=== PATIENT | male | born 1940 | race Caucasian/White ===

== ENCOUNTER 2018-10-14 05:30 | Emergency (ER) | payer OTHER ==
[2018-10-14 06:48] LABS: ADD MAN DIFF? NO
[2018-10-14 06:49] LABS: WHITE BLOOD COUNT 9.3 10^3/ul (4.8-10.8)
[2018-10-14 06:49] LABS: BASOPHIL # 0.1 10^3/ul (0.0-0.1); BASOPHILS % 0.5 % (0.0-2.0); EOSINOPHILS # 0.4 10^3/ul (0.0-0.5); EOSINOPHILS % 3.7 % (0.0-7.0); HEMATOCRIT 45.2 % (42.0-52.0); HEMOGLOBIN 14.3 g/dl (14.0-18.0); LYMPHOCYTES # 1.2 10^3/ul (0.8-2.9); LYMPHOCYTES % 12.4 % (15.0-51.0); MEAN CORPUSCULAR HEMOGLOBIN 30.1 pg (29.0-33.0); MEAN CORPUSCULAR HGB CONC 31.6 g/dl (32.0-37.0); MEAN CORPUSCULAR VOLUME 95.2 fl (82.0-101.0); MONOCYTES % 10.2 % (0.0-11.0); NEUTROPHIL # 6.8 10^3/ul (1.6-7.5); PLATELET COUNT 232 10^3/UL (140-415); RED BLOOD COUNT 4.75 10^6/ul (4.70-6.10); RED CELL DISTRIBUTION WIDTH 13.5 % (11.5-14.5)
[2018-10-14 07:24] LABS: TROPONIN-I 0.068 ng/ml (0.000-0.120)
[2018-10-14 07:24] LABS: B-TYPE NATRIURETIC PEPTIDE 859 PG/ML (0-450)
[2018-10-14] MEDS: FUROSEMIDE 20 MG TAB PO (07:45)
== END 2018-10-14 07:52 | disposition home or self-care (01) ==
LOC: FTE 05:30
DX: I11.0 Hypertensive heart disease with heart failure (principal); I50.9 Heart failure, unspecified; J06.9 Acute upper respiratory infection, unspecified
CPT/HCPCS: 71045; 83880; 84484; 85025; 93005; 99285-25